=== PATIENT | female | born 1985 | race Caucasian/White ===

== ENCOUNTER 2019-07-14 23:44 | Emergency (ER) | payer OTHER ==
[~2019-07-14] VITALS: Ht 152.4 cm; Wt 64.2 kg
--- NOTE | 2019-07-15 00:15 | NUR ---
PT CAME TO ER BED 10 C/O ABDOMINAL PAIN SINCE YESTERDAY NIGHT. PT THAT SHE HAS PAIN ON HER LOWER ABDOMEN THAT IS A 9/10. CURRENTLY DOES NOT WANT PAIN MEDICATION. PT STATES THAT SHE HAS HAD SIMILAR PAIN ABOUT A YEAR AGO FOR CONSTIPATION. 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 LAST BM WAS YESTERDAY AFTERNOON, HAS NOT BEEN ABLE TO HAVE BM SINCE. AAOX4. NO SOB. BREATHING EVENLY AND UNLABORED ON ROOM. AWAITING MD STOLL.
--- NOTE | 2019-07-15 00:21 | NUR ---
AT BEDSIDE FOR EVAL
--- NOTE | 2019-07-15 00:26 | NUR ---
URINE COLLECTED AND SENT TO LAB
[2019-07-15 00:32] LABS: APPEARANCE,URINE Slightly Cloudy (CLEAR); BILIRUBIN,URINE Negative (NEGATIVE); BLOOD, URINE Large Ery/uL (NEGATIVE); COLOR,URINE Yellow (YELLOW); KETONES,URINE Negative (NEGATIVE); LEUKOCYTE ESTERASE ,URINE Moderate (NEGATIVE); NITRITE, URINE Negative (NEGATIVE); PROTEIN,URINE Negative (NEGATIVE); UGLUCOSE Negative (NEGATIVE); UROBILINOGEN,URINE 0.2 EU/dL (0.2)
[2019-07-15 00:40] LABS: BASOPHILS # (AUTO) 0.1 /CMM (0.0-0.2); BASOPHILS % (AUTO) 0.4 % (0.0-2.0); EOSINOPHILS % (AUTO) 0.6 % (0.0-6.0); HEMATOCRIT 34 % (33-45); HEMOGLOBIN 10.6 g/dL (11.5-14.8); LYMPHOCYTES # (AUTO) 1.3 /CMM (0.8-4.8); LYMPHOCYTES % (AUTO) 9.7 % (20.0-44.0); MEAN CORPUSCULAR HGB CONC 32 g/dl (31.0-36.0); MEAN CORPUSCULAR VOLUME 76 fL (82-100); MONOCYTES # (AUTO) 0.5 /CMM (0.1-1.30); MONOCYTES % (AUTO) 3.3 % (2.0-12.0); NEUTROPHILS # (AUTO) 11.9 /CMM (1.8-8.9); PLATELET COUNT (AUTO) 328 /CMM (150-450); RED BLOOD CELL COUNT(AUTO) 4.42 MIL/uL (4.0-5.2); WHITE BLOOD COUNT (AUTO) 13.8 K/uL (4.3-11.0)
[2019-07-15 00:46] LABS: CALCIUM, SERUM 8.7 mg/dL (8.5-10.1); CREATININE 0.6 mg/dL (0.6-1.3); POTASSIUM 4.4 mmol/L (3.5-5.1)
[2019-07-15 00:52] LABS: ALBUMIN 3.2 g/dL (3.4-5.0); BILIRUBIN,DIRECT 0.1 mg/dL (0.0-0.2); BILIRUBIN,TOTAL 0.5 mg/dL (0.2-1.0); TOTAL PROTEIN, SERUM 7.2 g/dL (6.4-8.2)
[2019-07-15 00:54] LABS: BACTERIA,URINE Few /HPF (None Seen); SQUAMOUS EPITHELIAL CELL,UR Few /HPF (None Seen); WBC,URINE TOO NUMEROUS TO COUN /HPF (0-3)
[2019-07-15 01:13] VITALS: BP 127/85
--- NOTE | 2019-07-15 01:13 | NUR ---
Patient discharged to home in stable condition. Written and verbal after care instructions given. Patient verbalizes understanding of instruction.
== END 2019-07-15 01:14 | disposition home or self-care (01) ==
LOC: ER 23:46
DX: N39.0 Urinary tract infection, site not specified (principal)
CPT/HCPCS: 36415; 80048-TC; 80076-TC; 81000-TC; 83690-TC; 85025-TC; 87086-TC; 87186-TC